=== PATIENT | female | born 1995 ===

== ENCOUNTER 2024-05-03 08:23 | Day surgery (SDC) | payer MEDICAID ==
[~2024-05-03] VITALS: Ht 154.9 cm; Wt 90.0 kg
[2024-05-03] MEDS ORDERED: CELE200C PO (08:49)
[2024-05-03] MEDS ORDERED: [UNRECOGNIZED DRUG - OTHER] PO (08:51)
[2024-05-03] MEDS ORDERED: ROSU40TA PO (08:52)
[2024-05-03] MEDS ORDERED: EZET10TA7 PO (08:52)
[2024-05-03 09:01] VITALS: BP 121/78; PULSE 76; RESP 16
[2024-05-03] MEDS ORDERED: MIDAZolam 1 MG/ML 5ML VIAL ONE (09:54)
[2024-05-03] MEDS ORDERED: fentaNYL/PF 50MCG/1 ML 2ML syringe ONE (09:54)
[2024-05-03] MEDS ORDERED: diphenhydrAMINE 50 mg/ml inj ONE (09:54)
[2024-05-03 10:27] VITALS: BP 126/69; PULSE 64; RESP 19; O2SAT 100
[2024-05-03 10:37] VITALS: BP 111/64; PULSE 64; RESP 17; O2SAT 99
[2024-05-03 10:47] VITALS: BP 114/64; PULSE 65; RESP 16; O2SAT 99
[2024-05-03 10:57] VITALS: BP 103/65; PULSE 68; RESP 20; O2SAT 99
== END 2024-05-03 11:27 | disposition home or self-care (01) ==
LOC: GI LAB 08:23
PROVIDERS: ATTEND Internal Medicine Gastroenterology
DX: K92.1 Melena (principal); K64.8 Other hemorrhoids
CPT/HCPCS: 45378; 99152; J1200; J2250; J3010; J7030; Z7512; A4620